=== PATIENT | female | born 1985 | race Caucasian/White ===

== ENCOUNTER → 2018-08-21 16:01 | Outpatient (CLI) | payer SELFPAY ==
--- OUTSIDE RECORDS SUMMARY | 2018-10-24 04:01 | XMS RPT_ITS ---
:1985 Author Organization OHIP Care Team Providers Name Role Phone MD MAURI ESPINZOA Attending Unavailable Shaka Suggs Attending Unavailable Shaka Suggs Referring Unavailable PROBLEMS PROBLEMS DATE TYPE CONDITION / CODE ATTENDING STATUS SOURCE 08/21/2018 Unknown Z36.85 - Encounter Shaka Suggs Active [facility] screening [facility] Streptococcus B / Repository Z36.85(ICD-10) 03/17/2018 Admitting Encounter for MD ALEXIS Active [facility] Diagnosis screening for [facility] malignant neoplasm Repository of cervix / Z12.4(ICD-10) PROCEDURES PROCEDURES No Procedure Records FoundRESULTS RESULTS Observed: 08/21/2018 Status: F Source: [facility], GROUP B 3:00 PM [facility] [place] [facility] Culture Group B Beta Streptococcus is not isolated. Performed By: #### M100.1800 #### [facility] [address] [place], [address] GLU1P Collected: 05/19/2018 Status: F Source: [facility] 11:42 AM [facility] REPOSITORY TYPE CODE TESTS RESULT OUT OF RANGE REFERENCE UNITS LAB GLU1P(LOINC 70-139 mg/dL ) Gluc 1Hr 93 PP Performed By: #### GLU1P #### [facility] [address] [place] [id number] CBC Collected: 03/17/2018 Status: F Source: [facility] 2:56 PM [facility] REPOSITORY TYPE CODE TESTS RESULT OUT OF REFERENCE UNITS RANGE LAB WBC(LOINC) 4.50-10.80 10 3/mcL WBC 8.10 LAB RBCCT(LOINC 4.10-5.30 10 6/mcL ) Low RBC 3.95 LAB HGB(LOINC) 12.0-16.0 G/dL Hgb 12.4 LAB HCT(LOINC) 34.0-46.0 % Hct 36.3 LAB MCV(LOINC) 80.0-99.0 fL MCV 92.1 LAB MCH(LOINC) 27.0-33.0 pg MCH 31.5 LAB MCHC(LOINC) 32.0-36.0 G/dL MCHC 34.2 LAB RDW(LOINC) 11.5-15.5 % RDW 13.3 LAB PLT(LOINC) 150-450 10 3/mcL Platelet 186 LAB MPV(LOINC) 6.6-10.5 fL MPV 9.6 Performed By: #### CBC, ADIFF, ANEU, PABO, PABS, HBSAG, RUBIS, RPR #### [address] [address] .AUTO DIFF Collected: 03/17/2018 Status: F Source: [facility] 2:56 [facility] REPOSITORY TYPE CODE TESTS RESULT OUT OF REFERENCE UNITS RANGE LAB MOUNIKA(LOINC) 50.0-75.0 % Neutrophil % 70.6 LAB LYM(LOINC) 20.0-40.0 % Lymphocyte % 22.4 LAB MON(LOINC) 2.0-13.0 % Monocyte % 5.6 LAB EO(LOINC) 0.0-6.0 % Eosinophil % 1.0 LAB BAS(LOINC) 0.0-2.5 % Basophil % 0.4 LAB ABLYM(LOIN 0.90-4.32 10 3/mcL C) Lymphocyte, 1.80 Absolute LAB BILL(LOINC 0.09-1.40 10 3/mcL ) Monocyte, 0.50 Absolute LAB AEOS(LOINC 0.00-0.65 10 3/mcL ) Eosinophil, 0.10 Absolute LAB ABAS(LOINC 0.00-0.27 10 3/mcL ) Basophil, 0.00 Absolute Performed By: #### CBC, ADIFF, ANEU, PABO, PABS, HBSAG, RUBIS, RPR #### [address] [address] .NEUABS Collected: 03/17/2018 Status: F Source: [facility] 2:56 [facility] REPOSITORY TYPE CODE TESTS RESULT OUT OF REFERENCE UNITS RANGE LAB ANEU(LOINC) 2.25-8.10 10 3/mcL Neutrophil, 5.70 Absolute Performed By: #### CBC, ADIFF, ANEU, PABO, PABS, HBSAG, RUBIS, RPR #### [place] [address] PABO Collected: 03/17/2018 Status: F Source: [facility] 2:56 PM [facility] REPOSITORY TYPE CODE TESTS RESULT OUT OF RANGE REFERENCE UNITS LAB PARHI(LOINC ) Unknown PABO/Rh O POS Interp Performed By: #### CBC, ADIFF, ANEU, PABO, PABS, HBSAG, RUBIS, RPR #### [place] [address] PABS Collected: 03/17/2018 Status: F Source: [facility] 2:56 PM [facility] REPOSITORY TYPE CODE TESTS RESULT OUT OF REFERENCE UNITS RANGE LAB PABSI(LOINC ) PABS Negative ABSC Interp Performed By: #### CBC, ADIFF, ANEU, PABO, PABS, HBSAG, RUBIS, RPR #### [place] [address] HBSAG Collected: 03/17/2018 Status: F Source: [facility] 2:56 PM [facility] REPOSITORY TYPE CODE TESTS RESULT OUT OF REFERENCE UNITS RANGE LAB HBSAG(LOINC Negative ) Hep B Negative Surf Ag Performed By: #### CBC, ADIFF, ANEU, PABO, PABS, HBSAG, RUBIS, RPR #### [place] [address] RUBIS Collected: 03/17/2018 Status: F Source: [facility] 2:56 PM [facility] REPOSITORY TYPE CODE TESTS RESULT OUT OF REFERENCE UNITS RANGE LAB RUBIS(LOIN Positive C) Rubella Imm Positive St Result Comment: This immune status assay detects IgM and/or IgG antibody to Rubella. Interpret results in conjunction with clinical history. POS: Antibody detected; exposure at undetermined recent or distant time. If clinically indicated, order Rubella IGM to rule out recent infection. NEG: No antibody detected. Performed By: #### CBC, ADIFF, ANEU, PABO, PABS, HBSAG, RUBIS, RPR #### [place] [address] RPR Collected: 03/17/2018 Status: F Source: [facility] 2:56 PM [facility] REPOSITORY TYPE CODE TESTS RESULT OUT OF RANGE REFERENCE UNITS LAB RPR(LOINC) Non-Reactive RPR Non-Reactive Result Comment: The RPR test is a non- treponemal assay useful as an aid in the diagnosis of primary and secondary syphilis. It converts to positive generally within 2 weeks after the appearance of a lesion. This test is also useful for monitoring response to antibiotic therapy. A positive RPR screening test will be followed by the FTA ABS test. False positive RPR tests may occur in 1) patients with underlying autoimmune disorders, 2) elderly patients, 3) , and 4) other conditions with abnormal serum globulins. Performed By: #### CBC, ADIFF, ANEU, PABO, PABS, HBSAG, RUBIS, RPR #### [place] [address] Observed: 03/17/2018 Status: F Source: [facility] 2:56 PM [facility] REPOSITORY . MICRO - Microbiology PROCEDURE: Urine Culture [*1] SOURCE: Urine BODY SITE: COLLECTED DATE/TIME: 03/17/2018 14:56 EDT RECEIVED DATE/TIME: 03/18/2018 10:09 EDT START DATE/TIME: 03/18/2018 10:09 EDT FREE TEXT SOURCE: FINAL REPORTS Final Report [] Verified Date/Time/Personnel: 03/21/2018 10:13 EDT 75,000 organisms per mL Staphylococcus haemolyticus PRELIMINARY REPORTS Preliminary Report [] Verified Date/Time/Personnel: 03/20/2018 08:09 EDT 75,000 organisms per mL Staphylococcus species Final identification and ANTONY to follow. Preliminary Report [] Verified Date/Time/Personnel: 03/19/2018 13:24 EDT Culture results pending. SUSCEPTIBILITY RESULTS Staphylococcus haemolyticus Antibiotic ANTONY Dilutn ANTONY Interp Nitrofurantoin <=32 Susceptible Oxacillin <=0.25 Susceptible Penicillin <=0.03 Susceptible Trimethoprim/ <=0.5/9.5 Susceptible Sulfa Vancomycin 1 Susceptible Performing Locations *1: This test was performed at: [address], [facility] Performed By: #### CUR #### [place] [address] PROFESSOR OF COMMUNICATION CYTOLOGY REPORT Observed: 03/17/2018 Status: F Source: [facility] 2:54 PM [facility] REPOSITORY . Pathology Reports Accession: Collected Date/Time: Received Date/Time: Pathologist: [id number] 03/17/2018 14:54 EDT 03/17/2018 18:00 EDT [employer] Cytology Report SPECIMEN: Specimen Description: Conventional Specimen: Cervical/Endocervical Screening or Diagnostic: Screening RELEVANT HISTORY: LMP: 11/23/2017 : Yes SPECIMEN ADEQUACY: SATISFACTORY FOR EVALUATION ENDOCERVICAL/TRANSFORMATIONAL ZONE COMPONENT ABSENT/INSUFFICIENT INTERPRETATION/RESULTS: NEGATIVE FOR INTRAEPITHELIAL LESION OR MALIGNANCY Electronically Signed by Pathology report verified by [facility] Screened by: [place] Electronically signed by Marisela BENNETT (ASCP) Sign-Out Date: 03/24/2018 16:25 Performing Lab: [facility], [address] [place] [address] States Disclaimer The Pap test is a screening test for cervical cancer. As evidenced by published data, it is subject to both inherent false negative and false positive results. Your patient's results should be interpreted in context with pertinent clinical history including gynecological examination. Performed By: #### GYCR #### [place] [address] ALLERGIES ALLERGIES No Allergies Records FoundENCOUNTERS ENCOUNTERS ADMIT/DISCHARGE ACCOUNT NUMBER ADMITTING ENCOUNTER LOCATION SOURCE CLASS 08/21/2018 [id number] Ambulatory [facility] ding:LABSPEC Repository 03/17/2018/03/21/20 [id number] Ambulatory [address] [facility] PAYERS PAYERS ENCOUNTER GUARANTOR PAYER SUBSCRIBER SOURCE 08/21/2018 [facility]SELF [facility] [address] [place] [id number]: Number: Effective Repository Date:2018-08-21 () 03/17/2018 GEORGE A Primary GEORGE A [facility] TROYERDOB: Insurance:SELF TROYERDOB: [facility] [id number] [facility] Number: [id number] Date:2018-03-17VIKAS RACHEL Burns [address]Igu: [id number] Name:RACHEL Briscoe [id number]: ()Tel: [phone] (HP) (WP) [phone] (WP)
== END ==
PROVIDERS: Referring Provider Obstetrics & Gynecology; Visit Provider Obstetrics & Gynecology
DX: Z36.85 Encounter for antenatal screening for Streptococcus B (principal)
CPT/HCPCS: 87081

== ENCOUNTER 2018-08-29 08:30 | Inpatient (IN) | payer SELFPAY ==
[2018-08-29] VITALS (20 sets, daily range): BP systolic 94–118; BP diastolic 37–70; PULSE 63–81; RESP 14–20; TEMP 36.2–36.8; O2SAT 96–100; BMI 34.7
[2018-08-29] MEDS: Lactated Ringers 1,000 ML 999 ML IV (08:51)
[2018-08-29] MEDS: Sodium Citrate/Citric Acid 30 ML UDC PO (09:04)
[2018-08-29 09:11] LABS: Absolute Lymphocyte Count 1.74 X10^3/ul (0.83-4.51); Absolute Neutrophil Count 8.9 X10^3/uL (2.0-7.7); Basophil# 0.01 X10^3/uL; Basophil% 0.1 % (0-1); Eosinophil# 0.01 X10^3/uL; Eosinophils% 0.1 % (0-5); Hematocrit 39.3 % (37-47); Lymphocyte # 1.74 X10^3/ul (4.0); Lymphocyte % 15.6 % (19-41); Mean Corp Hgb Conc 33.1 g/gl (32-36); Mean Corpuscular Hgb 31.6 pg (27.0-32.0); Mean Corpuscular Volume 95.4 fL (81-99); Mean Platelet Vol. 10.4 fl (6.2-12.0); Monocyte# 0.44 X10^3/uL; Neutrophil # 8.89 X10^3/uL (2.7-7.7); Neutrophil % 79.8 % (47-70); POSITIVE COUNT NO; POSITIVE DIFFERENTIAL NO; POSITIVE MORPHOLOGY NO; Platelet Count 192 K/mm3 (150-450); RBC Distribution Width CV 12.7 % (11.6-14.6); Red Blood Count 4.12 M/mm3 (4.2-5.4); White Blood Count 11.1 K/mm3 (4.4-11.0)
[2018-08-29] MEDS: Cefazolin 2 GM in 0.9% Normal Saline 100 ML IV (09:23)
--- NOTE | 2018-08-29 09:32 | PCM.DCCSEC ---
Discharge Diet: No Restrictions Discharge Activity: May Shower, May Take a Tub Bath May resume sexual activity in: 4-6 weeks Lifting Restrictions: 20 pounds Additional Activity Instructions:: Nothing in the vagina for 4-6 weeks. You may return to work/school in 6 weeks. Additional Instructions: If you experience any of the following, contact your healthcare provider. Bleeding that soaks a pad every hour for 2 hours Fever 100.4 or higher Unrelieved incision or abdominal pain Swelling, redness, discharge or bleeding from your incision Problems urinating (including inability to urinate or burning while urinating). Visual changes Severe headache Flu-like symptoms Pain or redness in one of both of your breasts Pain, warmth, tenderness or swelling in your legs, especially the calf area Frequent nausea and vomiting Symptoms of depression or anxiety If you experience any of the following, call 911 or go to the nearest Emergency Room. Chest pain Problems breathing Seizure activity Partial or complete paralysis of a body part, slurred speech, weakness or drooping of the face, or a sudden inability to walk or hold your balance Allergies/Adverse Reactions: Allergies No Known Allergies Allergy (Verified 08/29/18 08:48) Medications to take at Discharge Docusate Sodium [Colace] 100 mg PO BID #30 capsule 08/29/18 Naproxen [Naprosyn] 250 - 500 mg PO TID PRN PRN #30 tablet 08/29/18 Oxycodone [Oxyir] 5 mg PO Q6H PRN PRN 7 Days #20 tablet 08/29/18 Polyethylene Glycol 3350 [Miralax] 17 gm PO DAILY PRN #14 packet 08/29/18 Vits [Prenatabs FA ] 1 tablet PO DAILY 08/29/18 The following prescriptions were given: Oxycodone [Oxyir] 5 mg PO Q6H PRN PRN 7 Days #20 tablet PRN Reason: Mod-Severe Pain (-05/10) Naproxen [Naprosyn] 250 - 500 mg PO TID PRN PRN #30 tablet PRN Reason: Mild-Mod Pain (1-10) Polyethylene Glycol 3350 [Miralax] 17 gm PO DAILY PRN #14 packet PRN Reason: Constipation Docusate Sodium [Colace] 100 mg PO BID #30 capsule Follow-Up: Call to make an appointment with your doctor for an incision check in 1-2 weeks. You will also need a 6 week post- follow up appointment. Test results from this visit will be discussed in further detail at your follow-up appointment, if applicable. Please Follow Up With: Shaka Suggs MD - [phone] When: in 2 wk for postop incision check
--- NOTE | 2018-08-29 09:35 | DCINST_ITS ---
Discharge Diet: No Restrictions Discharge Activity: May Shower, May Take a Tub Bath May resume sexual activity in: 4-6 weeks Lifting Restrictions: 20 pounds Additional Activity Instructions:: Nothing in the vagina for 4-6 weeks. You may return to work/school in 6 weeks. Additional Instructions: If you experience any of the following, contact your healthcare provider. * Bleeding that soaks a pad every hour for 2 hours * Fever 100.4 or higher * Unrelieved incision or abdominal pain * Swelling, redness, discharge or bleeding from your incision * Problems urinating (including inability to urinate or burning while urinating). * Visual changes * Severe headache * Flu-like symptoms * Pain or redness in one of both of your breasts * Pain, warmth, tenderness or swelling in your legs, especially the calf area * Frequent nausea and vomiting * Symptoms of depression or anxiety If you experience any of the following, call 911 or go to the nearest Emergency Room. * Chest pain * Problems breathing * Seizure activity * Partial or complete paralysis of a body part, slurred speech, weakness or drooping of the face, or a sudden inability to walk or hold your balance Allergies/Adverse Reactions: Allergies No Known Allergies Allergy (Verified 08/29/18 08:48) Medications to take at Discharge Docusate Sodium [Colace] 100 mg PO BID #30 capsule 08/29/18 Naproxen [Naprosyn] 250 - 500 mg PO TID PRN PRN #30 tablet 08/29/18 Oxycodone [Oxyir] 5 mg PO Q6H PRN PRN 7 Days #20 tablet 08/29/18 Polyethylene Glycol 3350 [Miralax] 17 gm PO DAILY PRN #14 packet 08/29/18 Vits [Prenatabs FA ] 1 tablet PO DAILY 08/29/18 The following prescriptions were given: Oxycodone [Oxyir] 5 mg PO Q6H PRN PRN 7 Days #20 tablet PRN Reason: Mod-Severe Pain (-05/10) Naproxen [Naprosyn] 250 - 500 mg PO TID PRN PRN #30 tablet PRN Reason: Mild-Mod Pain (1-12/08) Polyethylene Glycol 3350 [Miralax] 17 gm PO DAILY PRN #14 packet PRN Reason: Constipation Docusate Sodium [Colace] 100 mg PO BID #30 capsule Follow-Up: Call to make an appointment with your doctor for an incision check in 1-2 weeks. You will also need a 6 week post- follow up appointment. Test results from this visit will be discussed in further detail at your follow- up appointment, if applicable. Please Follow Up With: Shaka Suggs MD - [phone] When: in 2 wk for postop incision check
[2018-08-29] MEDS: Oxytocin 30 units/NS 500 ml 30 UNITS/500 ML IV.SOLN 167 UNITS IV (09:43)
[2018-08-29] MEDS: Lactated Ringers 1,000 ML 100 ML IV ×2 (09:51→15:22)
[2018-08-29] MEDS: Ketorolac 30 MG/ML Syringe IV ×3 (10:15→21:22)
[2018-08-29 10:40] LABS: HIV - WCH Non-Reactive (Nonreactive)
[2018-08-29 11:52] LABS: Chlamydia Trachomatis by PCR Negative (Negative); Neisserai gonorrhoeae by PCR Negative (Negative); Probe Check PASS; Sample Adequacy Control PASS; Specimen Processing Control PASS
--- NOTE | 2018-08-29 12:48 | PCM.OP.BLANK ---
Operative Report Date of Procedure: 08/29/18 PROCEDURE: Repeat C section. Preoperative diagnosis: 39 6/7 wk EGA Prior C section , planned repeat C/S due to breech BREECH presentation, early labor Postop diagnosis: 39 6/7 wk EGA Prior C section , planned repeat C/S due to breech BREECH presentation, early labor Anesthesia: Spinal, Naren Gonzalez CRNA Surgeon: Cinthia Lemus MD Numerical Tool Programmer: PHILLIP Cronin EBL 600 cc Complications: none Drains: Montalvo draining clear yellow appearing urine Fluids: replacement LR Findings: At amniotomy, meconium stained fluid was noted. Fitzpatrick viable female in breech presentation. Apgars 9/9, Baby weight: pending at end of surgery. There was a normal appearing uterus, fallopian tubes and ovaries bilaterally. There were minimal filmy adhesions between the bladder and lower uterine segment. PATH: Routine cord blood for typing collected. Narrative account: After the risks, benefits and alternatives of the procedure were reviewed with the patient, informed consent was obtained. The patient was taken to the Operating room with an IV running, and placed in a seated position on the operating table for placement of the spinal. Once the spinal had been administered, she was repositioned to dorsal supine position, briefly frog-legged for Montalvo catheter placement, and then repositioned again to dorsal supine position with leftward displacement of the uterus, and prepped and draped in the usual sterile fashion. Once the spinal was deemed adequate, a Pfannenstiel skin incision was created using the knife (through the prior skin incision scar). The incision was carried down to the rectus fascia using the knife. The fascia was nicked in the midline. The fascial incision was extended bilaterally using curved Starkey scissors. The superior aspect of the fascial incision was grasped with Carmelo clamps and tented up and the underlying rectus abdominal muscles were dissected free. In a similar manner, the inferior aspect of the facial incision was grasped with Carmelo clamps tented up and the underlying rectus abdominal muscles were dissected free. The rectus abdominis muscles were in the midline and the peritoneum was identified and entered by blunt dissection high in the incision. The peritoneum was dissected down at the midline the rectum abdominis muscles also. The peritoneum was stretched laterally and a bladder blade was inserted. A bladder flap was created along the lower uterine segment with Metzenbaum scissors . The uterine incision was then created using Metzenbaum scissors. The operators fingertips were used to extend the uterine incision by blunt dissection in a caudad- cephalad orientation . Meconium stained fluid was noted at amniotomy. The feet were then grasped and brought through the incision and the was delivered up to the level of the shoulders by fundal pressure. The arms were swept down and the vtx was then delivered atraumatically through the incision keeping the neck flexed. The OP and nares were bulb suctioned on the abdomen. The cord clamped x two and cut. And the was handed off to the nurse awaiting delivery after briefly showing her to her parents. The baby had a spontaneous, vigorous cry. The placenta was then delivered. The uterus was exteriorized and cleared of clots and debris . The uterine incision was repaired with 1 Vicryl in a running locked fashion. A second imbricating layer was then placed, using 1 Monocryl in running nonlocked fashion. A horizontal mattress stitch was placed at both uterine angles. Bovie cautery was used to treat any bleeding areas . Excellent hemostasis was noted. At this point the uterus was returned to the abdominal cavity. The gutters were cleared of clots and debris and the incision at the uterus was inspected. The pelvis was irrigated. The peritoneal edges were reapproximated in the midline with a series of interrupted vertical mattress stitches of 1 Vicryl. Excellent hemostasis was noted at the subfascial space The fascia was closed in a running nonlocked fashion with a Stratofix. The Subcutaneous fatty tissue was Bovie cauterized as needed for hemostasis. This layer was then reapproximated in a single layer closure of running 3-0 Vicryl to eliminate space. The skin edges were closed in a Subcuticular stitch of 4-0 Monocryl. The incision was cleansed. Cavilon, Steristrips, and Mepilex dressing were applied to the skin . The patient was then transferred to the recovery room bed in stable condition after tolerating the procedure well. Sponge, lap, needle and instrument counts correct times two. Medications given preop and intraoperatively included: Ancef 2gm IV, given intelligence operations to the operating room. The patient also received Pitocin given IV after cord clamp, and Toradol 30 mg IV times one. For a complete listing of medications given preop and intraoperatively, please see the anesthesia record.
--- NOTE | 2018-08-29 12:55 | OP.PCM_ITS ---
Operative Report Date of Procedure: 08/29/18 PROCEDURE: Repeat C section. Preoperative diagnosis: 39 6/7 wk EGA Prior C section , planned repeat C/S due to breech BREECH presentation, early labor Postop diagnosis: 39 6/7 wk EGA Prior C section , planned repeat C/S due to breech BREECH presentation, early labor Anesthesia: Spinal, Naren Gonzalez CRNA Surgeon: Cinthia Lemus MD Departure Clerk: PHILLIP Cronin EBL 600 cc Complications: none Drains: Montalvo draining clear yellow appearing urine Fluids: replacement LR Findings: At amniotomy, meconium stained fluid was noted. Fitzpatrick viable female in breech presentation. Apgars 9/9, Baby weight: pending at end of surgery. There was a normal appearing uterus, fallopian tubes and ovaries bilaterally. There were minimal filmy adhesions between the bladder and lower uterine segment. PATH: Routine cord blood for typing collected. Narrative account: After the risks, benefits and alternatives of the procedure were reviewed with the patient, informed consent was obtained. The patient was taken to the Operating room with an IV running, and placed in a seated position on the operating table for placement of the spinal. Once the spinal had been administered, she was repositioned to dorsal supine position, briefly frog- legged for Montalvo catheter placement, and then repositioned again to dorsal supine position with leftward displacement of the uterus, and prepped and draped in the usual sterile fashion. Once the spinal was deemed adequate, a Pfannenstiel skin incision was created using the knife (through the prior skin incision scar). The incision was carried down to the rectus fascia using the knife. The fascia was nicked in the midline. The fascial incision was extended bilaterally using curved Starkey scissors. The superior aspect of the fascial incision was grasped with Carmelo clamps and tented up and the underlying rectus abdominal muscles were dissected free. In a similar manner, the inferior aspect of the facial incision was grasped with Carmelo clamps tented up and the underlying rectus abdominal muscles were dissected free. The rectus abdominis muscles were in the midline and the peritoneum was identified and entered by blunt dissection high in the incision. The peritoneum was dissected down at the midline the rectum abdominis muscles also. The peritoneum was stretched laterally and a bladder blade was inserted. A bladder flap was created along the lower uterine segment with Metzenbaum scissors . The uterine incision was then created using Metzenbaum scissors. The operators fingertips were used to extend the uterine incision by blunt dissection in a caudad- cephalad orientation . Meconium stained fluid was noted at amniotomy. The feet were then grasped and brought through the incision and the infant was delivered up to the level of the shoulders by fundal pressure. The arms were swept down and the vtx was then delivered atraumatically through the incision keeping the neck flexed. The OP and nares were bulb suctioned on the abdomen. The cord clamped x two and cut. And the was handed off to the nurse awaiting delivery after briefly showing her to her parents. The baby had a spontaneous, vigorous cry. The placenta was then delivered. The uterus was exteriorized and cleared of clots and debris . The uterine incision was repaired with 1 Vicryl in a running locked fashion. A second imbricating layer was then placed, using 1 Monocryl in running nonlocked fashion. A horizontal mattress stitch was placed at both uterine angles. Bovie cautery was used to treat any bleeding areas . Excellent hemostasis was noted. At this point the uterus was returned to the abdominal cavity. The gutters were cleared of clots and debris and the incision at the uterus was inspected. The pelvis was irrigated. The peritoneal edges were reapproximated in the midline with a series of interrupted vertical mattress stitches of 1 Vicryl. Excellent hemostasis was noted at the subfascial space The fascia was closed in a running nonlocked fashion with a Stratofix. The Subcutaneous fatty tissue was Bovie cauterized as needed for hemostasis. This layer was then reapproximated in a single layer closure of running 3-0 Vicryl to eliminate space. The skin edges were closed in a Subcuticular stitch of 4-0 Monocryl. The incision was cleansed. Cavilon, Steristrips, and Mepilex dressing were applied to the skin . The patient was then transferred to the recovery room bed in stable condition after tolerating the procedure well. Sponge, lap, needle and instrument counts correct times two. Medications given preop and intraoperatively included: Ancef 2gm IV, given sephora operations consultant to the operating room. The patient also received Pitocin given IV after cord clamp, and Toradol 30 mg IV times one. For a complete listing of medications given preop and intraoperatively, please see the anesthesia record.
[2018-08-29] MEDS: proMETHazine 25 MG/ML Syringe 12.5 MG IV (13:52)
[2018-08-30 00:20] VITALS: BP 90/50; PULSE 74; RESP 16; TEMP 36.3; O2SAT 97
[2018-08-30 02:40] VITALS: PULSE 98; RESP 16; O2SAT 97
[2018-08-30] MEDS: Ketorolac 30 MG/ML Syringe IV ×2 (04:02→11:49)
[2018-08-30 04:22] LABS: Hemoglobin 10.4 g/dl (12.0-15.0); Mean Corp Hgb Conc 32.5 g/gl (32-36); Mean Corpuscular Hgb 31.6 pg (27.0-32.0); Mean Corpuscular Volume 97.3 fL (81-99); Mean Platelet Vol. 10.4 fl (6.2-12.0); Platelet Count 146 K/mm3 (150-450); RBC Distribution Width CV 12.5 % (11.6-14.6); RBC Distribution Width SD 42.6 fl (35.1-43.9); Red Blood Count 3.29 M/mm3 (4.2-5.4); White Blood Count 8.3 K/mm3 (4.4-11.0)
[2018-08-30 04:23] LABS: Scan Indicated on CBC? Y/N NO
[2018-08-30 04:41] VITALS: BP 92/57; PULSE 64; RESP 18; TEMP 36.6; O2SAT 98
--- NOTE | 2018-08-30 07:43 | PCM.PN.OB ---
Subjective: POD#1 Repeat C/S , for BREECH presentation Doing well. Bottle feeding. Would like to go home tonight. Will consider further throughout the day. Objective: Sitting up on couch, NAD - Physical Exam General: Alert, Oriented x3, Cooperative, No apparent distress HEENT: Atraumatic Neck: Supple Abdomen: Soft - Fundus firm minimally tender, inferior to umbilicus Skin: Incision - CDI. Mepilex dressing intact Neurological: Cranial nerves II-XII grossly intact Psych/Mental Status: Normal Affect Vital Signs Temp Pulse Resp BP Pulse Ox 97.8 F 64 18 92/57 L 98 08/30/18 04:41 08/30/18 04:41 08/30/18 04:41 08/30/18 04:41 08/30/18 04:41 Oxygen Delivery Method Room Air Weight: 91.852 kg Body Mass Index (BMI) 34.7 Intake and Output for Last 24 Hours 08/28/18 08/29/18 08/30/18 23:59 23:59 23:59 Intake Total 1519 / 1519 Output Total 750 / 750 1100 / 1100 Balance 769 / 769 -1100 / -1100 Laboratory Tests Past 24 Hrs 08/29/18 08/29/18 08/29/18 08:40 08:50 08:50 WBC 11.1 H RBC 4.12 L Hgb 13.0 Hct 39.3 MCV 95.4 MCH 31.6 MCHC 33.1 RDW 12.7 RDW Differential 44.0 H Plt Count 192 MPV 10.4 Immature Gran % (Auto) 0.400 Neut % (Auto) 79.8 H Lymph % (Auto) 15.6 L [place] % (Auto) 4.0 Eos % (Auto) 0.1 Baso % (Auto) 0.1 Absolute Neuts (auto) 8.9 H Absolute Lymphs (auto) 1.74 Total Counted Not Reportable Chlam trachomat DNA PCR HIV 1&2 Antibody Non-Reactive N.gonorrhoeae DNA (PCR) Blood Type O POSITIVE Antibody Screen NEGATIVE 08/29/18 08/30/18 08:50 04:14 WBC 8.3 RBC 3.29 L Hgb 10.4 L Hct 32.0 L MCV 97.3 MCH 31.6 MCHC 32.5 RDW 12.5 RDW Differential 42.6 Plt Count 146 L MPV 10.4 Immature Gran % (Auto) Neut % (Auto) Lymph % (Auto) [place] % (Auto) Eos % (Auto) Baso % (Auto) Absolute Neuts (auto) Absolute Lymphs (auto) Total Counted Chlam trachomat DNA PCR Negative HIV 1&2 Antibody N.gonorrhoeae DNA (PCR) Negative Blood Type Antibody Screen Medical Necessity - Tobacco Use Smoking Status: Never smoker Assessment/Plan POD#1 Repeat C/S for breech Stable postop. Would like to go home. Advised to watch during day as Duramorph wears off , to see if pain control adequate for dischg. May dischg home today. RTO for postop check in 2 wks.
[2018-08-30 09:17] VITALS: BP 102/48; PULSE 85; RESP 16; TEMP 36.6; O2SAT 100
[2018-08-30] MEDS: 0.9% Saline Lock 10 ML Syringe IV (11:49)
[2018-08-30] MEDS: Prenatal Vits Tablet 1 TABLET PO (13:23)
[2018-08-30 13:26] VITALS: BP 100/45; PULSE 85; RESP 16; TEMP 36.8
[2018-08-30 18:45] VITALS: BP 100/50; PULSE 90; RESP 18; TEMP 36.8
== END 2018-08-30 18:45 | disposition home or self-care (01) | DRG 788 ==
PROVIDERS: Admitting Provider Obstetrics & Gynecology; Visit Provider Obstetrics & Gynecology
PROC: 10D00Z1 Extraction of Products of Conception, Low, Open Approach (ICD-10-PCS; CPT 59514; principal; 2018-08-29 11:45)
DX: O34.211 Maternal care for low transverse scar from previous cesarean delivery (principal); N85.8 Other specified noninflammatory disorders of uterus; Z3A.39 39 weeks gestation of pregnancy; Z37.0 Single live birth; O32.1XX0 Maternal care for breech presentation, not applicable or unspecified; O77.0 Labor and delivery complicated by meconium in amniotic fluid
CPT/HCPCS: 59050; 85025; 85027; 86703; 86850; 86900; 87491; 87591; 99218; J7120; A4216; G0378

== ENCOUNTER → 2018-09-11 15:24 | Outpatient (CLI) | payer SELFPAY ==
[2018-08-29 08:43] VITALS: BMI 34.7
== END ==
PROVIDERS: Visit Provider Obstetrics & Gynecology
DX: N39.0 Urinary tract infection, site not specified (principal)
CPT/HCPCS: 87086; 87088; 87186